=== PATIENT | male | born 2000 | race Hispanic/Latino ===

== ENCOUNTER 2020-04-23 02:24 | Inpatient (IN) | payer OTHER ==
[~2020-04-23] VITALS: Ht 205.7 cm; Wt 75.0 kg
[2020-04-23] MEDS ORDERED: NS 1,000 ML IV ONE (02:45)
[2020-04-23 02:53] LABS: HEMATOCRIT 46.6 % (42.0-52.0); HEMOGLOBIN 15.8 g/dl (13.5-17.5); MEAN CORPUSCULAR HEMOGLOBIN 32.1 pg (27.0-33.0); MEAN CORPUSCULAR HGB CONC 33.9 g/dl (32.0-36.5); MEAN CORPUSCULAR VOLUME 94.7 fl (80.0-96.0); PLATELET COUNT, AUTOMATED 272 10^3/uL (150-450); RED BLOOD COUNT 4.92 10^6/uL (4.30-6.10)
[2020-04-23 03:32] LABS: ACETAMINOPHEN LEVEL < 2.0 UG/ML (10.0-30.0); ALBUMIN 4.4 GM/DL (3.2-5.2); ALT/SGPT 34 U/L (12-78); BILIRUBIN,DIRECT < 0.1 MG/DL (0.0-0.2); BILIRUBIN,TOTAL 0.3 MG/DL (0.2-1.0); BLOOD UREA NITROGEN 12 MG/DL (7-18); CARBON DIOXIDE LEVEL 27 MEQ/L (21-32); CHLORIDE LEVEL 109 MEQ/L (98-107); CREATININE FOR GFR 1.05 MG/DL (0.70-1.30); ETHYL ALCOHOL (ETHANOL) 0.101 % (0.000-0.010); GLOMERULAR FILTRATION RATE > 60.0 (>60); GLUCOSE, FASTING 100 MG/DL (70-100); POTASSIUM SERUM 4.3 MEQ/L (3.5-5.1); SALICYLATE LEVEL < 1.7 MG/DL (5.0-30.0); SODIUM LEVEL 143 MEQ/L (136-145); THYROID STIMULATING HORMONE 0.549 uIU/ML (0.358-3.740); TOTAL PROTEIN 8.5 GM/DL (6.4-8.2)
[2020-04-23 05:05] LABS: AMPHETAMINES LEVEL URINE NEGATIVE (NEGATIVE); BARBITURATES URINE NEGATIVE (NEGATIVE); BENZODIAZEPINES URINE NEGATIVE (NEGATIVE); CANNABINOIDS URINE NEGATIVE (NEGATIVE); COCAINE METABOLITE URINE NEGATIVE (NEGATIVE); METHADONE URINE NEGATIVE (NEGATIVE); OPIATES URINE NEGATIVE (NEGATIVE); PHENCYCLIDINE URINE NEGATIVE (NEGATIVE)
[2020-04-23] MEDS ORDERED: ACETAMINOPHEN TAB 650MG DOSE (2X325MG) PO PRN (05:45)
[2020-04-23] MEDS ORDERED: MOM 30ML SUSPENSION UDC PO PRN (05:45)
[2020-04-23] MEDS ORDERED: MAALOX 30 ML SUSP *UDC PO PRN (05:45)
[2020-04-23] MEDS ORDERED: LORazepam 2 MG TAB PO PRN (06:15)
[2020-04-23] MEDS: THIAMINE 100 MG TAB PO SCH ×2 (06:27→22:04)
[2020-04-23] MEDS: MULTIVITAMINS/MINERALS THERAP 1 TAB PO SCH (09:24)
[2020-04-23] MEDS: FOLIC ACID 1 MG TAB PO SCH (09:24)
[2020-04-23 09:27] VITALS: BP 133/83
[2020-04-23 10:39] VITALS: BP 149/88
--- NOTE | 2020-04-23 15:30 | ECGEPIP ---
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
[2020-04-23 17:53] VITALS: BP 147/64
[2020-04-23] MEDS: traZODone 50 MG TAB PO PRN (22:04)
[2020-04-24 01:27] VITALS: BP 125/65
[2020-04-24 06:49] VITALS: BP 112/60
[2020-04-24] MEDS: MULTIVITAMINS/MINERALS THERAP 1 TAB PO SCH (09:15)
[2020-04-24] MEDS: FOLIC ACID 1 MG TAB PO SCH (09:15)
[2020-04-24] MEDS: THIAMINE 100 MG TAB PO SCH ×2 (09:15→20:22)
--- NOTE | 2020-04-24 09:58 | HPEPDOC ---
[facility] Medical History & Physical Date of Admission Apr 24, 2020 Date of Service: Apr 24, 2020 History and Physical Chief complaint: Presented to [facility] after having thoughts of suicide Hospital service was consulted for medical screening evaluation History of present illness: Patient is a 20-year-old male with no significant past medical or surgical history, who was presented to [facility] after thoughts of self- harm and self-inflicted cutting injury to his left arm. Patient was admitted to the inpatient mental health unit under the care of psychiatry. Hospital service was consulted for medical screening evaluation. Currently patient denies any headache, nausea, vomiting, chest pain, shortness breath, palpitations, cough, abdominal pain, constipation, diarrhea, or urinary discomfort. Patient denies any recent fevers or chills. Reports that her appetite is fairly normal and they're unsure of any changes in her weight. Past Medical History: See HPI Past Surgical History: See HPI Allergies: See below Medications: See below Family History: - No history of malignancies Social History: - Denies the use of illicit drugs; patient reports that her smoker of 2 years. 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 [employer] Review of Systems: 10 point review of systems complete, all negative otherwise stated in HPI Physical exam: - Vitals: BP [112/60], HR [63], RR [16], Sat [98%RA], Temp [97.8F] - General: Lying in bed, Speaking in full sentences, AAOx3 - HEENT: NC, AT, PERRLA - CVS: RRR, +S1S2 - Lungs: Fair air entry bilaterally, No appreciable wheezing / rales / rhonchi - Abdomen: Soft, Non-distended, Non-tender - Extremities: No lower extremity edema, No calf tenderness - Neuro: 5/5 strength at LE bilaterally, 5/5 at L and RUE; sensation remains intact bilaterally at hands - Skin: L arm with dressing in place; upon removal wound appears clean ~2 inches without any drainage / induration - has 3 lizzeth that are very lightly in place Assessment and Plan: Depression - Patient presented to emergency room after self-inflicted injury - Patient was admitted to the inpatient mental health unit under the care of psychiatry - Currently being managed by psychiatry Left arm laceration - self inflicted - Patient reports slight tingling sensation - Status post repair in the emergency room (04/23) - Wound appears clean without any evidence of infection - No leukocytosis and he remains afebrile - Continue with dressing changes - Will have outpatient follow-up with primary care provider; please contact hospitalist service again if neurologic status changes DVT prophylaxis - Will continue with early ambulation Thank you for this consultation; hospitalist service will sign off, please reconsult as needed Vital Signs Vital Signs Date Time Temp Pulse Resp B/P (MAP) Pulse Ox O2 Delivery O2 Flow Rate FiO2 04/24/20 06:49 97.8 63 16 112/60 (77) 98 Room Air Home Medications Unable to Obtain Active Prescriptions or Reported Meds Allergies Coded Allergies: No Known Allergies (Unverified , 04/23/20) A-FIB/CHADSVASC A-FIB History Current/History of A-Fib/PAF?: No MICHELA MILLAN MD Apr 24, 2020 09:58
--- NOTE | 2020-04-24 11:53 | MHIPNPDOC ---
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 He was brought to [facility] after making several superficial lacerations to left arm. VITAL SIGNS: See below. NEW TEST RESULTS: CURRENT MEDICATIONS: See below. 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 He appears his stated. He is dressed appropriately, wearing hospital scrubs and t-shirt. He is not observed with any psychomotor agitation or retardation. He makes good eye contact and is calm and cooperative in the interview. Speech: Is spontaneous, fluid and conversant. Normal tone, volume and rate Language skills are good Thought processes including: reality-based, linear and goal oriented Thought content: Reporting mild depression, no anxiety, feelings of frustration because he is not able to help his family during Covid=19 Abstract reasoning, and computation: Good Description of associations: None Description of abnormal or psychotic thoughts: None Judgment: Good Insight: Good Orientation: Alert and oriented times 3 Recent and remote memory: Intact Attention span and concentration: Good Language: Expansive Fund of knowledge: Above Average Mood: Mildly depressed. Affect: Flat. DIAGNOSES: 1. Major Depressive Disorder, Single Episode, Moderate 2. Alcohol Intoxication ASSESSMENT: Patient is reporting continued frustration with policies. Reports that he is having difficulty with trying to be and career oriented while having family with financial and COVID-19 stressors. He states that he has been having difficulty with being in the due to stressors with his biological mother who is requesting money and making him feel guilty. 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 Patient feels extremely guilty being so far away for not being able to help his family with the difficulties. His sister who was an essential person in the restaurant recently had a baby and is not home MANAGEMENT PLAN: Patient is stable for discharge tomorrow. plastic roller and primary RN is aware. TIME SPENT: 35 minutes. Vital Signs Vital Signs Date Time Temp Pulse Resp B/P (MAP) Pulse Ox O2 Delivery O2 Flow Rate FiO2 04/24/20 06:49 97.8 63 16 112/60 (77) 98 Room Air Current Medications Current Medications Medications (Trade) Dose Ordered Sig/Jeremy Route PRN Reason Start Time Stop Time Status Last Admin Dose Admin Acetaminophen (Tylenol Tab) 650 mg Q6HP PRN PO HEADACHE or DISCOMFORT 04/23/20 05:45 Al Hydrox/Mg Hydrox/Simethicone (Mylanta) 30 ml Q4HP PRN PO HEARTBURN/INDIGESTION 04/23/20 05:45 Folic Acid (Folic Acid) 1 mg DAILY PO 04/23/20 09:00 04/24/20 09:15 Home Med (Med Rec Complete!) ASDIRECTED XX 04/23/20 04:45 04/23/20 04:39 DC Lorazepam (Ativan) 2 mg ASDIRECTED PRN PO SEE PROTOCOL 04/23/20 06:15 Magnesium Hydroxide (Milk Of Magnesia) 30 ml DAILYPRN PRN PO CONSTIPATION 04/23/20 05:45 Multivitamins (Theragram-M) 1 tab DAILY PO 04/23/20 09:00 04/24/20 09:15 Thiamine HCl (Thiamine HCl) 100 mg BID PO 04/23/20 06:19 04/25/20 21:01 04/24/20 09:15 Trazodone HCl (Desyrel) 50 mg QHSP PRN PO INSOMNIA 04/23/20 05:45 04/23/20 22:04 Allergies Coded Allergies: No Known Allergies (Unverified , 04/23/20) STEPHANIE JOHNSTON NP Apr 24, 2020 11:53
[2020-04-24 14:00] VITALS: BP 130/72
[2020-04-24 16:10] VITALS: BP 134/74
[2020-04-24] MEDS: traZODone 50 MG TAB PO PRN (20:22)
[2020-04-25 06:41] VITALS: BP 129/63
--- NOTE | 2020-04-25 08:32 | MHHPE ---
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 He was brought into the Emergency Room by MPs. The patient had cut his left forearm. He called his steam and gas turbine assembler and told him that he was having family issues and asked him to come to the barracks to talk to him. The steam and gas turbine assembler was not on boat so they called someone else to go to the patients room. The steam and gas turbine assembler called the patient back and the patient stated I cant stop the bleeding and then hung up. The steam and gas turbine assembler tried to call him back but was unable to reach him so the MPs were called. He was found passed out on the floor in a pool of blood. The patient admitted that he made the cuts to his forearm as a suicidal attempt. He was intoxicated at the time. He indicated he had not slept for 24 hours. He was depressed and having a lot of rage. He tells me today that he was upset, apparently his biological sister was actually the one that raised him as his mother and biological mother tries to contact him and take responsibility for raising him and he says that this makes him angry. He states that he has been feeling depressed and wanting to get out of the [employer] since December of this year. He states that he misses his family and he had asked to maybe get changed to a post that was closer to [place] where his family is without any results. The patient states that when he went home to see his family recently, he found that he really missed his family a lot and he states that was the last time he remembers feeling happy. He states that he is worried about his family due to multiple issues that they are having and he states Im upset all the time and I cant focus on my work. PAST PSYCHIATRIC HISTORY: The patient states that in 2017 he took an overdose and was found unconscious. He admits he was intoxicated at the time also. He states that this was in response to the fact that his ex-girlfriend at the time had overdosed on drugs. He states that it was soon after that, that he decided to join the [employer] because he felt that he needed to do something to change his life around. The patient states that he was never treated with medications and he is not really receptive to trying any medications. FAMILY HISTORY: He thinks that both biological parents probably have some problems with mood symptoms but he is not sure. There is no suicides in the family. MEDICAL HISTORY: Negative for any medical problems. ABUSE HISTORY: He did not elicit any history of abuse. SUBSTANCE ABUSE: Emergency Room records say that he drinks everyday. When I asked him about that today, he was more vague about it and he says that he drinks depending on the day and I could not get him to tell me the amount he drinks. Toxicology was negative for any drugs. He denies using any drugs. REVIEW OF SYSTEMS: Vital signs: Blood pressure is 147/64, pulse is 124, respirations are 16. Appearance: He did not appear to be in any apparent distress. All other systems reviewed and found to be negative. Neuromuscular system: The patients gait is normal and there was no involuntary movements noted. MENTAL STATUS EXAM: This patient is alert and oriented x3. Eye contact is fair. Psychomotor activity is decreased. There is formal thought disorder noted. The patient is depressed. Affect is flat. He is not psychotic. He denies having suicidal thoughts today but admits to having suicidal intent when he cut. He denies homicidal ideations. Concentration is fair. Memory is intact. Insight and judgment is poor. DIAGNOSIS: Other specified depressive disorder, rule out major depressive disorder, rule out alcohol use disorder. TREATMENT PLAN: At this point, we will further observe and evaluate this patient for his ongoing depression and continued resolution of suicidal ideations. The patient I feel is a significant risk because he made a pretty serious suicidal attempt as he was found on the floor passed out in a pool of blood according to the Emergency Room records plus he has a significant past overdose in 2017 when he also took a serious overdose and he says he was unconscious when he was found. The patient is not receptive to taking any medications but we will continue to evaluate and recommend that he consider taking an antidepressant. The patient will be to discharge him with appropriate follow up when stable. CESAR
[2020-04-25] MEDS ORDERED: TRAZ-252 PO (09:04)
--- NOTE | 2020-04-25 11:56 | MHDSPDOC ---
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 Patient comes in with self-inflicted lacerations to his left fore arm which required 3 sutures. According to the initial psychiatric evaluation, patient was upset having learning about some family stressors. He asked his sales team recruiter to speak with him and MP's were sent and found the patient passed out with a fair amount of blood on the floor. Medical H + P theorizes that patient had used a tourniquet during his self-harm gestures, as he reported continued parasthesia on admission. He had reported to have been drinking, had not slept for 24 hours, reporting to be "frustrated" in my interview. CONSULTANTS INVOLVED: See Medical H + P by Medical MD TREATMENT AND PROGRESS ON THE UNIT : Patient admitted to [facility] for his self harm gestures. Upon my initial interaction, patient had reported no suicidal ideation, planning or intent. He was afforded individual therapy, group therapy, medication management, milieu therapy and safe environment. He was not receptive to anti-depressants and met the criteria for Major Depressive Disorder. Patient reports that his greatest stressor is that not being able to help his family. HOSPITAL COURSE: On my initial interaction with the patient, he denied that this self-harm gesture was a suicide attempt. 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 During his initial interview with me yesterday he denies suicidal ideation. Reports mild depression with no anxiety. DISCHARGE ASSESSMENT: Patient found sleeping, was agreeable to interview in his room. States that he doesn't feel well, reporting head congestion and [place] to [place]. He is anxious to learn if there are any repercussions for his admission. While I encouraged patient to consider hospitalization for another day, he stated that he had no reason that his depression was mild, and he had no further thoughts of self harm. MENTAL STATUS EXAMINATION ON DISCHARGE: Speech: Is spontaneous, fluid and conversant. Normal tone, volume and rate Language skills are good Thought processes including: reality-based, linear and goal oriented Thought content: Reporting mild depression, no anxiety, feelings of frustration because he does not know what his future will entail. Will stay in [employer] if he is closer to family to help them Abstract reasoning, and computation: Good Description of associations: None Description of abnormal or psychotic thoughts: None Judgment: Good Insight: Good Orientation: Alert and oriented times 3 Recent and remote memory: Intact Attention span and concentration: Good Language: Expansive Fund of knowledge: Above Average Mood: states, "I am ok" Affect: Flat. MEDICATIONS ON DISCHARGE: Trazodone 50 mg at bedtime for insomnia, patient was not receptive to other antidepressants. PLAN/FOLLOWUP ARRANGEMENTS: Patient will follow up with [facility] The amount of time spent in the coordination of care for this patient was approximately 15 minutes. Vital Signs/I&Os Vital Signs Date Time Temp Pulse Resp B/P (MAP) Pulse Ox O2 Delivery O2 Flow Rate FiO2 04/25/20 06:41 97.7 71 16 129/63 (85) Room Air 04/24/20 06:49 98 Medications Scheduled PRN Trazodone HCl (Trazodone HCl) 50 Mg Tablet, 50 MG PO QHSP PRN for INSOMNIA, #7 Allergies Coded Allergies: No Known Allergies (Unverified , 04/23/20) STEPHANIE JOHNSTON NP Apr 25, 2020 11:56
== END 2020-04-25 10:25 | disposition home or self-care (01) | DRG 885 ==
LOC: M ED 02:24 → M ED INP 05:33 → M PSY 08:00
PROVIDERS: ADMIT Psychiatry & Neurology Psychiatry; ATTEND Psychiatry & Neurology Psychiatry
DX: F32.1 Major depressive disorder, single episode, moderate (principal)